=== PATIENT | female | born 1950 | race Caucasian/White ===

== ENCOUNTER → 2024-10-03 | Outpatient (CLI) | payer MEDICARE, MEDICAID, SELFPAY ==
--- NOTE | 2024-10-03 16:00 | XR_ITS ---
Examination: CT chest, without intravenous contrast. Sagittal and coronal 2-D reconstructions. Exam date and time: October 03, 2024 1533 hours INDICATIONS: Smoking history 40 years CTDI:vol (mGy) 14.6. DLP: (mGycm) 512. Technique: Multiple 3.0 mm axial sections of the chest to been obtained. Bone and lung density settings are obtained. Sagittal and coronal 2-D reconstructions have been obtained. Low dose protocols were performed. One or more of the following dose reduction techniques were used; automated exposure control, adjustment of the mA and/or KV according to patient size, use of iterative reconstruction technique. Findings: Thoracic aortic calcification no aneurysm dilatation High left periaortic 11 mm lymph node Right tracheobronchial lymph node 22 mm 3 mm pulmonary nodule right upper lobe image 16 2 mm pulmonary nodule right upper lobe image 17 3 mm pulmonary nodule right upper lobe image 18 5 mm pulmonary nodule posterior left lung image 23 9 mm pulmonary nodule lingular segment image 44 8 mm pulmonary nodule right lower lobe image 54 No pneumonia or pulmonary edema No visualized liver or splenic lesions Contracted gallbladder No pancreatic or adrenal mass Advanced diffuse thoracic degenerative disc disease Impression : Mediastinal lymphadenopathy and multiple pulmonary nodules as above, recommend continued 6 month follow-up CT chest without contrast
== END | disposition home or self-care (01) ==
PROVIDERS: PCP Family Medicine; Referring Provider Family Medicine; Visit Provider Family Medicine
DX: R59.0 Localized enlarged lymph nodes (principal); R91.8 Other nonspecific abnormal finding of lung field; F17.210 Nicotine dependence, cigarettes, uncomplicated
CPT/HCPCS: 71271